=== PATIENT | female | born 1990 | race Caucasian/White ===

== ENCOUNTER 2016-06-26 07:58 | Emergency (ER) | payer OTHER ==
[~2016-06-26 07:58] MED LIST: AMETHIA 0.15-01 EAC1 PO; BCP; HYDROCODON-ACE1 EAC9 PO; IMITREX25 MG PO; LEVAQUIN PO; MELATONIN1 MG PO; MOBIC PO; NO MEDICATIONS; PROMETHAZINE HC25 MG PO; PROPRANOLOL HCL60 M1 PO; SKELAXIN PO; WELLBUTRIN PO; YAZ 28 TABLET1 TAB PO; ZOFRAN PO
[2016-06-26 08:26] LABS: URINE SOURCE CLEAN CATCH
[2016-06-26 08:35] LABS: MICRO INDICATED? NO; URINE APPEARANCE CLEAR; URINE BILIRUBIN NEG (NEG); URINE BLOOD NEG (NEG); URINE COLOR YELLOW; URINE GLUCOSE NEG (NORM); URINE KETONE NEG (NEG); URINE LEUKOCYTE ESTERASE NEG (NEG); URINE NITRATE NEG (NEG); URINE PROTEIN NEG (NEG); URINE UROBILINOGEN 0.2 MG/DL (NORM)
[2016-06-26 08:47] LABS: BLOOD UREA NITROGEN 9 mg/dL (9-23); BUN/CREATININE RATIO 11.25; CALCIUM SERUM 9.1 mg/dL (8.4-10.2); CARBON DIOXIDE 26 mmol/L (22-31); CHLORIDE 102 mmol/L (100-111); CREATININE SERUM 0.8 mg/dL (0.6-1.4); GLOM FILT RATE Estimated ABOVE60 mL/min (>60); GLUCOSE FASTING 96 mg/dL (70-110); POTASSIUM 3.7 mmol/L (3.5-5.1); SODIUM 137 mmol/L (135-145)
== END 2016-06-26 09:51 | disposition home or self-care (01) ==
LOC: SED 07:58
PROVIDERS: Emergency Medicine
DX: E86.0 Dehydration (principal); Z79.899 Other long term (current) drug therapy
CPT/HCPCS: 36415; 80048; 81003; 84703; 96361; 96374; 96375; 99284; J1200; J1885; J2550

== ENCOUNTER → 2016-10-19 | Outpatient (CLI) | payer OTHER ==
--- NOTE | ~2016-10-19 | HM ---
Unit #: [id number] #: [id number] Patient: МАРИНА ETIENNE [id number] [facility]. [place], [place] [address] [id number] O MR#: [id number] NAME: МАРИНА ETIENNE : 1990 SEX: F STUDY DATE/TIME: 10/19/2016 UNIT: CE ROOM: STUDY DESCRIPTION: Attending Physician: Abdullahi Crandall M.D. Referring Physician: Abdullahi Crandall M.D. Primary Care Physician: Abdullahi Crandall M.D. CARDIOLOGY REPORT EXAM Holter monitor DATE APPLIED 10/19/2016 DATE SCANNED 10/23/[address] Abdullahi Crandall READ BY Dr. Fan Mas INDICATION Palpitations. SUMMARY Patient was monitored for 24 hours. A total of 151,854 beats were analyzed. Average heart rate was 106 beats per minute. Minimum heart rate is 69 beats per minute, occurred at approximately 5:50 a.m., maximum heart rate 156 beats per minute, occurred at approximately 5:00 p.m. There were no pauses. Supraventricular ectopy: Fourteen isolated beats with seven runs totaling 91 beats. Some of these "runs" appeared to be artifact. One run which appeared to be atrial flutter was actually artifact. The maximal SVT run was also artifact. One of the supraventricular ectopic couplets was actually artifact. Ventricular ectopy: Sixty isolated beats. There were two runs totalling seven beats. These were reviewed, and are actually artifact. SYMPTOMS 1. The patient experienced palpitations walking and carrying bags at approximately noon. Rhythm was sinus, rate 119 beats per minute. 2. Patient experienced palpitations up the stairs at approximately 2:00 p.m. Rhythm was sinus, rate 116 beats per minute. 3. Patient experienced palpitations while lying down at approximately 2:45 p.m. Rhythm was sinus, rate 111 beats per minute. 4. Patient experienced palpitations giving kgwa-rtgl-ecu a shower, rate 115 beats per minute, rhythm sinus, at approximately 7:45 p.m. Unit #: [id number] #: [id number] Patient: МАРИНА ETIENNE 5. Patient experienced palpitations during intercourse at approximately 10:20 p.m. Rate was 114 beats per minute, rhythm was sinus. IMPRESSION 1. Symptoms without any dysrhythmia. 2. Occasional supraventricular tachycardia and ventricular tachycardia abnormalities were noted on the Holter monitor, which are actually artifact. 3. This is a normal Holter monitor. 4. Sinus tachycardia occurred throughout. Despite a variety of activities during palpitation symptoms, the heart rate remained at approximately the average heart rate of the patient. Dictated by... Denia Perez/doreen TD: 10/28/2016 20:42 JOB #: [id number] CARDIOLOGY REPORT Page 1 of 1 X Fan Mas MD HOLTER MONITOR REPORT
== END | disposition home or self-care (01) ==
LOC: CEKG 10:16
DX: R00.2 Palpitations (principal); I49.1 Atrial premature depolarization; I10 Essential (primary) hypertension; G43.909 Migraine, unspecified, not intractable, without status migrainosus; I47.2 Ventricular tachycardia
CPT/HCPCS: 93225; 93226

== ENCOUNTER → 2016-10-28 | Outpatient (CLI) | payer OTHER ==
--- NOTE | ~2016-10-28 | US77 ---
[facility] A Service of [facility] & [facility] RADIOLOGY TEXT RESULTS PATIENT: МАРИНА ETIENNE LOCATION: CNIV : [birth year] UNIT #: [id number] AGE: [address]: Abdullahi Crandall MD SEX: F ORDER DR: [id number] [facility] [address] [place], [place] [address] [id number] O MR#: [id number] Acc #: [id number] NAME: МАРИНА ETIENNE : 1990 SEX: F STUDY DATE/TIME: 10/28/2016 11:02 UNIT: CNIV ROOM: STUDY DESCRIPTION: US Kidney Bilateral Complete Attending Physician: Abdullahi Crandall M.D. Referring Physician: Abdullahi Crandall M.D. Ordering Physician: Abdullahi Crandall M.D. Primary Care Physician: Abdullahi Crandall M.D. MEDICAL IMAGING REPORT This report is preliminary unless electronic signature is present EXAM Renal ultrasound bilateral, 10/28/2016 HISTORY Proteinuria at doctor's appointment October 05, 2016. Benign essential hypertension. FINDINGS The left kidney measures 10.6 cm while the right kidney measures 11.0 cm in longitudinal dimensions. There is no evidence of hydronephrosis or nephrolithiasis. No cystic or solid mass lesions were seen on either kidney. There is normal renal cortical echogenicity. Images of the bladder are normal. IMPRESSION 1. Negative renal ultrasound. 2. Images of the bladder are normal. Dictated by... Roel Maher M.D. THIS IS AN ELECTRONICALLY VERIFIED REPORT Roel Maher M.D. at 10/29/2016 2:25 PM FERNANDA/sukumar TD: 10/28/2016 14:37 JOB #: [id number] MEDICAL IMAGING REPORT Page 1 of 1 COPY
--- NOTE | ~2016-10-28 | US78 ---
[facility] A Service of [facility] & [facility] RADIOLOGY TEXT RESULTS PATIENT: МАРИНА ETIENNE LOCATION: CNIV : [birth year] UNIT #: [id number] AGE: [address]: Abdullahi Crandall MD SEX: F ORDER DR: [id number] [facility] [address] [place], [place] [address] [id number] O MR#: [id number] Acc #: [id number] NAME: МАРИНА ETIENNE : 1990 SEX: F STUDY DATE/TIME: 10/28/2016 10:33 UNIT: CNIV ROOM: STUDY DESCRIPTION: US Kidney Duplex Complete Attending Physician: Abdullahi Crandall M.D. Referring Physician: Abdullahi Crandall M.D. Ordering Physician: Abdullahi Crandall M.D. Primary Care Physician: Abdullahi Crandall M.D. MEDICAL IMAGING REPORT This report is preliminary unless electronic signature is present EXAM Color Doppler ultrasound evaluation of the aorta and renal arteries. HISTORY Hypertension, diagnosed 6 months ago. TECHNIQUE Ultrasound evaluation was performed with singleton-scale, color-flow, and Doppler spectral waveform analysis in the abdominal aorta and across the renal artery origins. FINDINGS The right kidney measures 11 x 4 x 5 cm, and the left kidney 11 x 5 x 5 cm with no evidence of mass, cyst or hydronephrosis. Peak systolic velocity in the proximal right renal artery is 175 cm/sec and in the proximal left renal artery 90 cm/sec. The renal aortic ratio is 1.1 on the right and 0.5 on the left. No evidence of renovascular hypertension. Doppler spectral waveform pattern is normal with flow in systole and diastole. IMPRESSION Normal examination. No evidence of renal artery stenosis by ultrasound criteria. Dictated by... Jason Shrestha M.D. THIS IS AN ELECTRONICALLY VERIFIED REPORT Jason Shrestha M.D. at 10/29/2016 4:33 PM YVONNE/kaur TD: 10/29/2016 12:06 JOB #: [id number] [facility] A Service of [facility] & [facility] RADIOLOGY TEXT RESULTS PATIENT: МАРИНА ETIENNE LOCATION: [facility] : [birth year] UNIT #: [id number] AGE: [address]: Abdullahi Crandall MD SEX: F ORDER DR: MEDICAL IMAGING REPORT Page 1 of 1 COPY
== END | disposition home or self-care (01) ==
LOC: CNIV 10:05
DX: R80.9 Proteinuria, unspecified (principal); I10 Essential (primary) hypertension; I49.1 Atrial premature depolarization; F41.8 Other specified anxiety disorders; G43.909 Migraine, unspecified, not intractable, without status migrainosus; R00.2 Palpitations
CPT/HCPCS: 76770; 93975